=== PATIENT | female | born 1985 | race Caucasian/White ===

== ENCOUNTER → 2018-04-10 16:47 | Outpatient (REF) | payer BC, SELFPAY | LOC: LAB 16:47 | PROVIDERS: Visit Provider Nurse Practitioner Obstetrics & Gynecology | DX: N75.0 Cyst of Bartholin's gland (principal); R10.2 Pelvic and perineal pain | CPT/HCPCS: 87070; 87077; 87186; 87205 ==

== ENCOUNTER → 2018-08-27 13:29 | Outpatient (CLI) | payer BC, SELFPAY ==
[2018-08-28 08:37] LABS: HIV Screen 4th Generation wRfx Non Reactive (Non Reactive); Hepatitis C Antibody <0.1 s/co ratio (0.0-0.9)
[2018-08-28 12:55] LABS: Rapid Plasma Reagin Ab Titer Non Reactive (NonRea<1:1)
== END ==
PROVIDERS: PCP Nurse Practitioner Obstetrics & Gynecology; Visit Provider Obstetrics & Gynecology
DX: Z72.51 High risk heterosexual behavior (principal)
CPT/HCPCS: 36415; 86592; 86703; 87380; G0432

== ENCOUNTER → 2019-07-24 10:50 | Outpatient (CLI) | payer BC, SELFPAY ==
--- NOTE | 2019-07-24 10:52 | US_ITS ---
PROCEDURE: US TRANSVAGINAL CLINICAL INDICATION: US T/V- RLQP Pelvic pain COMPARISON: TVP US TRANSVAGINAL PREG from 10/13/2015 TECHNIQUE: FINDINGS: The uterus is bulky at 10 x 5 x 5 cm with a combined endometrial thickness of 6 mm. No obvious uterine mass. There is an IUD present which appears to be in satisfactory position within the endometrial canal of the body of the uterus. The left ovary is 3 x 2.3 cm with some small follicles measuring up to 1 cm. The right ovary is 5 x 2.4 cm containing at least 2 cysts each measuring approximately 2 cm. No cul-de-sac fluid is evident. IMPRESSION: Slightly bulky uterus with IUD in place Mildly prominent right ovary containing 2 cyst at 2 cm each Dictated by: Antonio Sevilla MD 07/24/2019 17:51 Signed by: <Electronically signed by Antonio Sevilla MD in [place]> 07/24/2019 17:51
== END ==
PROVIDERS: Visit Provider Nurse Practitioner Obstetrics & Gynecology
DX: R10.31 Right lower quadrant pain (principal)
CPT/HCPCS: 76830

== ENCOUNTER → 2019-07-28 16:59 | Outpatient (CLI) | payer BC, SELFPAY ==
[2019-07-31 14:20] LABS: Neisseria gonorrhoeae, NAA Negative (Negative)
== END ==
PROVIDERS: Visit Provider Nurse Practitioner Obstetrics & Gynecology
DX: R10.2 Pelvic and perineal pain (principal); Z72.51 High risk heterosexual behavior
CPT/HCPCS: 87491; 87591

== ENCOUNTER 2020-08-24 12:29 | Emergency (ER) | payer BC, SELFPAY ==
[2020-08-24 12:30] VITALS: BP 188/99; PULSE 87; RESP 16; TEMP 37.2; O2SAT 98; BMI 39.1
--- NOTE | 2020-08-24 13:39 | HMH.EDUTC ---
[facility] [place] [facility] [place] Clinical Impression: Allergic rhinitis Qualifiers: Allergic rhinitis trigger: unspecified Allergic rhinitis seasonality: unspecified Qualified Code(s): J30.9 - Allergic rhinitis, unspecified Disposition: Home, Self-Care Condition on Discharge: Good Instructions: Sore Throat, DI for Nasal Congestion Additional Instructions: *Monitor Temp, Over the counter Motrin or Tylenol as directed/as needed Tylenol every 4 hours and Motrin every 6 hours (as long as your family doctor has told you that you can take it) for fever or pain. and straight to ER if unable to lower temp less than 101.0 after medication given *Warm salt water gargles may help to soothe the throat *Throat Lozenges *Warm fluids like tea with honey may help to soothe the throat *Sleep elevated *Humidifier/Vaporizer *Flonase 2 sprays in each nostril daily but be aware that it may take 2-3 days before you notice improvement Your throat swab was sent for culture. Those results are typically sent to your primary care. Be sure to follow up in 2-3 days with your family doctor/primary care physician if no improvement so they can review those result and treat if necessary. If you don?t have a primary care doctor, I recommend you get one but in the mean time, you will have to return to a walk in clinic Follow up IMMEDIATELY for new or worsening symptoms or no Noticeable improvement over the next 48-72 hours. 911 for difficulty breathing or swallowing You was tested for today for COVID19 your test result should be back within the next 48-72 hours, call back to the [facility] to see if your test results are back and the result You was given a handout with instructions for Self Quarantine and Self isolation for while you wait on test results and what to do if they are positive Prescriptions: Fluticasone Propionate [Flonase 50mcg nasal spray 16gm] 1 spr NS DAILY #1 bottle Transmission Status: Pending to [facility] methylPREDNISolone [Medrol 4mg tab] 4 mg PO DIRECTED #21 tab Transmission Status: Pending to [facility] Referrals: Praneeth Conti [Primary Care Provider] - As needed Time of Disposition: 13:55 Medical Decision Making - Dung Inquiry Pt receiving controlled substance: No Dung was queried for this patient: No Vital Signs: 08/24/20 12:30 Temperature 98.9 F Temperature Source Oral Pulse Rate [Right] 87 Respiratory Rate 16 Blood Pressure [Right Arm] 188/99 H Blood Pressure Mean [Right Arm] 128 Blood Pressure Source [Right Arm] Automatic Cuff Blood Pressure Position [Right Arm] Sitting 02 Sat by Pulse Oximetry 98 Oxygen Delivery Method Room Air - Lab Data Lab results reviewed: Yes: I reviewed the patient's lab results. Lab Results 08/24/20 13:24: Strep Scn Rapid Clinic Negative Orders (Tests/Meds): ORDERS Category Date Time Status Covid-19 Nasal PCR Sendout [facility] Stat [facility] 08/24/20 13:24 Ordered Strep Screen Confirmation Stat Micro 08/24/20 13:24 Re[place] [facility] [place] - General Stated complaint: Marinelli,nausa, sore throat, Time Seen by Provider: 08/24/20 13:39 Mode of Arrival: Ambulatory Source of Information: Patient Limitations: No Limitations Description of Symptoms (Recalled from Triage Doc. by RN): Pt c/o headache, nausea, sore thorat for the past couple of days HEENT Symptoms (Recalled from RN notes): Yes (see triage note) Resp Symptoms (Recalled from RN notes): No Skin Symptoms (Recalled from RN notes): No MS Symptoms (Recalled from RN notes): No Functional Status (Recalled from RN notes): na - History of Present Illness Provider Complaint: Patient states that she hasnt been feeling well having sore throat, nasal congestion and cough along with some nausea earlier today States that she has a small child on Chemo and wanted to get checked for COVID States that today she was still feeling bad so she come in to get checked - Related Data Home Medications Medication Instructions Recorded Co
[2020-08-24 13:43] LABS: UTC Strep Screen (Rapid) Negative (Negative)
[2020-08-24 13:51] VITALS: BP 143/92; PULSE 78; RESP 18; TEMP 37.2; O2SAT 99
[2020-08-25 12:38] LABS: Covid-19 Nasal PCR Sendout Lex NOT DETECTED
== END 2020-08-24 13:59 | disposition home or self-care (01) ==
PROVIDERS: Emergency Provider Nurse Practitioner; PCP Pediatrics
DX: J30.9 Allergic rhinitis, unspecified (principal); F41.9 Anxiety disorder, unspecified; F17.210 Nicotine dependence, cigarettes, uncomplicated; Z20.828 Contact with and (suspected) exposure to other viral communicable diseases
CPT/HCPCS: 87880; 99202; U0004

== ENCOUNTER → 2021-05-18 18:03 | Outpatient (CLI) | payer BC, SELFPAY ==
[2021-05-18 18:28] LABS: Basophils % 0.2 % (0.1-2.0); Eosinophils # 0.1 K/mm3 (0.0-0.4); Eosinophils % 1.6 % (0.1-12.0); Hematocrit 36.9 % (37.0-47.0); Hemoglobin 12.6 g/dL (12.2-16.2); Lymphocytes # 1.2 K/mm3 (0.7-4.5); Lymphocytes % 26.3 % (10-50); Mean Corpuscular HGB Conc 34.1 g/dL (31.8-35.4); Mean Corpuscular Hemoglobin 25.8 pg (27.0-31.2); Mean Corpuscular Volume 75.6 fl (81-99); Mean Platelet Volume 8.7 fl (7.4-10.4); Monocytes # 0.3 K/mm3 (0.1-1.0); Monocytes % 5.7 % (1.7-9.3); Neutrophils # 2.9 K/mm3 (1.8-7.8); Neutrophils % 66.3 % (37.0-80.0); Platelet Count 217 K/mm3 (142-424); Red Blood Count 4.88 M/mm3 (4.20-5.40); Red Cell Distribution Width 16.1 % (11.5-17.5); White Blood Count 4.4 K/mm3 (4.8-10.8)
[2021-05-18 18:58] LABS: Alanine Aminotransferase 30 U/L (12-78); Albumin Level 4.5 g/dl (3.5-5.0); Albumin/Globulin Ratio 1.6 (1.1-1.8); Alkaline Phosphatase 60 U/L (38-126); Aspartate Amino Transferase 35 U/L (14-36); Bilirubin,Total 0.8 mg/dl (0.2-1.3); Blood Urea Nitrogen 12 mg/dl (7-17); Calcium 9.3 mg/dl (8.4-10.2); Carbon Dioxide 27 mmol/L (22.0-30.0); Chloride 105 mmol/L (98-107); Chol/HDL Ratio 3.9 (1-3.5); Cholesterol 169 mg/dl (140-200); Estimated Glomerular Filt Rate 114 ml/min (>60); GFR (African American) 138 ML/MIN (>60); Globulin 2.9 g/dL (1.3-3.2); Glucose 95 mg/dl (74-100); HDL Cholesterol 43 mg/dl (40-60); Sodium 139 mmol/L (136-145); Total Protein,Serum 7.4 g/dl (6.3-8.2); Triglycerides 177 mg/dl (30-150); VLDL Cholesterol 35 mg/dL (0-40)
[2021-05-18 19:09] LABS: Direct LDL Cholesterol 98.91 mg/dL (100-129)
[2021-05-18 19:16] LABS: Free T4 (Free Thyroxine) 0.93 ng/dl (0.78-2.19)
[2021-05-18 19:17] LABS: 25-OH Vitamin D, Total 18.4 ng/mL (30-100)
[2021-05-18 19:29] LABS: Thyroid Stimulating Hormone 3.99 uIU/mL (0.465-4.68)
== END ==
PROVIDERS: Visit Provider Physician Assistant
DX: I10 Essential (primary) hypertension (principal); E55.9 Vitamin D deficiency, unspecified; E66.01 Morbid (severe) obesity due to excess calories; Z68.41 Body mass index [BMI] 40.0-44.9, adult
CPT/HCPCS: 80053; 80061; 82306; 84439; 84443; 85025

== ENCOUNTER → 2021-05-24 17:28 | Outpatient (CLI) | payer BC, SELFPAY | PROVIDERS: Visit Provider Nurse Practitioner Obstetrics & Gynecology | DX: N75.1 Abscess of Bartholin's gland (principal) | CPT/HCPCS: 87070; 87077; 87186; 87205 ==

== ENCOUNTER → 2021-05-30 07:45 | Outpatient (CLI) | payer BC, SELFPAY ==
--- NOTE | 2021-05-30 07:45 | CA_ITS ---
APPROVED REPORT Workforce Services Representative: Lakia Gautam RVT Study Quality: Good Indications: HTN Risk Factors Hypertension Smoking Renal Artery Doppler Origin (R) 178.0/ cm/sec Proximal (R) 150.2/ cm/sec Mid (R) 123.0/ cm/sec Distal (R) 174.6/ cm/sec Renal Aorta Ratio (R) 1.09 Segmental A. (R) 64.4/14.5 cm/sec RI: 0.77 Segmental A. Sup (R) 64.4/14.5 cm/sec Segmental A. Mid (R) 43.4/15.8 cm/sec Segmental A. Inf (R) 59.1/21.0 cm/sec Origin (L) 143.0/ cm/sec Proximal (L) 128.6/ cm/sec Mid (L) 172.1/ cm/sec Distal (L) 86.7/ cm/sec Renal Aorta Ratio (L) 1.05 Segmental A. (L) 47.2/19.1 cm/sec RI: 0.59 Segmental A. Sup (L) 38.5/9.4 cm/sec Segmental A. Mid (L) 47.2/19.1 cm/sec Segmental A. Inf (L) 43.8/21.4 cm/sec Renal Measurements Kidney Size (R) 12.1x7.0 cm Cortical Thickness (R) 1.7 cm Kidney Size (L) 11.2x6.5 cm Cortical Thickness (L) 1.4 cm Findings Study suggests no evidence of stenosis of the bilateral renal arteries. Conclusion Study suggests no evidence of stenosis of the bilateral renal arteries. Electronically signed by : Antonio Sevilla MD 05/30/2021 17:01:06
== END ==
PROVIDERS: PCP Physician Assistant; Visit Provider Physician Assistant
DX: I10 Essential (primary) hypertension (principal)
CPT/HCPCS: 93976

== ENCOUNTER → 2021-06-30 19:25 | Outpatient (CLI) | payer BC, SELFPAY | PROVIDERS: Visit Provider Nurse Practitioner Family | DX: Z11.52 Encounter for screening for COVID-19 (principal) | CPT/HCPCS: U0003 ==

== ENCOUNTER → 2021-08-01 22:03 | Outpatient (CLI) | payer BC, SELFPAY | PROVIDERS: Visit Provider Nurse Practitioner Family | DX: Z20.822 Contact with and (suspected) exposure to COVID-19 (principal); R05 Cough | CPT/HCPCS: U0003 ==

== ENCOUNTER → 2021-09-20 12:36 | Outpatient (CLI) | payer BC, SELFPAY ==
--- NOTE | 2021-09-20 12:44 | XR_ITS ---
PROCEDURE: XR CHEST 2V CLINICAL HISTORY: s/p covid, soa COMPARISON: No exams were available for comparison FINDINGS: The cardiomediastinal silhouette and pulmonary vascularity are within normal limits. The lungs are clear without infiltrates, suspicious nodules, or pleural effusions. No acute bony abnormalities. IMPRESSION: No acute findings. Dictated by: Antonio Sevilla MD 09/20/2021 17:14 Antonio Sevilla MD in [place] 09/20/2021 17:14
== END ==
PROVIDERS: PCP Physician Assistant; Visit Provider Physician Assistant
DX: R06.02 Shortness of breath (principal)
CPT/HCPCS: 71046

== ENCOUNTER → 2021-10-11 08:14 | Outpatient (CLI) | payer BC, SELFPAY ==
--- NOTE | 2021-10-11 08:20 | CT_ITS ---
PROCEDURE: CT ANGIO CHEST PE PROTOCOL CLINCIAL INDICATION: dyspnea post covid COMPARISON: CR XR CHEST 2V from 09/20/2021 TECHNIQUE: IV Contrast: 70ML Isovue 370 Axial images obtained with sagittal and coronal reformats. All CT scans at the facility use one or more dose reduction, viz: automated exposure control, ma/kV adjustment per patient size (including targeted exams where dose is matched to indication, i.e. head), or iterative reconstruction technique. FINDINGS: HEART AND MEDIASTINAL STRUCTURES: Thyroid gland is somewhat enlarged bilaterally. Subtle low-dense changes are present in the left lobe of the thyroid gland suggesting a nodule measuring 2.5 x 1.3 cm. Thyroid ultrasound may provide further evaluation. No evidence of pulmonary embolus. LUNGS AND PLEURAL SPACES: The lungs are clear of infiltrate. There are few scattered calcified granulomas. No ground-glass infiltrates. No effusions or fibrotic change. BONY STRUCTURES: Mild degenerative changes thoracic spine. UPPER ABDOMEN: Diffuse fatty liver infiltration. There is splenomegaly at 16 cm. ADDITIONAL FINDINGS: No other significant abnormalities. IMPRESSION: 1. No acute pulmonary findings. No evidence of pulmonary embolus. The lungs are clear. 2. 2.5 x 1.3 cm left-sided thyroid nodule with mild bilateral thyromegaly. Thyroid ultrasound may provide further evaluation. 3. Splenomegaly Dictated by: Antonio Sevilla MD 10/12/2021 08:24 Antonio Sevilla MD in [place] 10/12/2021 08:24
== END ==
PROVIDERS: PCP Physician Assistant; Visit Provider Physician Assistant
DX: R06.09 Other forms of dyspnea (principal); U09.9 Post COVID-19 condition, unspecified
CPT/HCPCS: 71275; Q9967

== ENCOUNTER → 2022-02-01 16:43 | Outpatient (CLI) | payer BC, SELFPAY | PROVIDERS: Visit Provider Nurse Practitioner Obstetrics & Gynecology | DX: N75.1 Abscess of Bartholin's gland (principal); B96.20 Unspecified Escherichia coli [E. coli] as the cause of diseases classified elsewhere | CPT/HCPCS: 87070; 87077; 87186; 87205 ==

== ENCOUNTER 2022-06-30 16:19 | Emergency (ER) | payer BC, SELFPAY ==
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
[2022-06-30 17:16] VITALS: BP 170/109; PULSE 80; RESP 17; TEMP 36.9; O2SAT 97; BMI 39.4
[2022-06-30 17:31] VITALS: BP 170/109; PULSE 80; RESP 17; TEMP 36.9
== END 2022-06-30 17:32 | disposition home or self-care (01) ==
PROVIDERS: Emergency Provider Nurse Practitioner Family; PCP Physician Assistant
DX: Z20.822 Contact with and (suspected) exposure to COVID-19 (principal); B34.9 Viral infection, unspecified
CPT/HCPCS: 99212; C9803; G0463; U0003; U0005

== ENCOUNTER → 2022-09-28 17:32 | Outpatient (CLI) | payer BC, SELFPAY | PROVIDERS: PCP Nurse Practitioner Obstetrics & Gynecology; Visit Provider Nurse Practitioner Obstetrics & Gynecology | DX: N75.0 Cyst of Bartholin's gland (principal) | CPT/HCPCS: 86403 ==

== ENCOUNTER 2022-11-13 15:53 | Emergency (ER) | payer BC, SELFPAY ==
[2022-11-13 16:36] VITALS: BP 180/120; PULSE 84; RESP 16; TEMP 36.9; O2SAT 98; BMI 36.6
[2022-11-13 16:46] LABS: UTC Strep Screen (Rapid) Negative (Negative)
--- NOTE | 2022-11-13 17:21 | EXP.UTC ---
Discharge Plan Disposition Patient Disposition: Home, Self-Care Condition: Good Prescriptions Prescriptions: No Action Mirena 20 mcg/24 hours (7 yrs) 52 mg intrauterine device INTRAUTERI albuterol sulfate [Ventolin HFA] 90 mcg/actuation HFA aerosol inhaler 2 puff INHALATION Q4-6H PRN (Reason: shortness of breath or wheezing) 30 Days Qty: 6.7 5RF Rx Instructions: administer with spacer cholecalciferol (vitamin D3) 25 mcg (1,000 unit) capsule 25 mcg PO DAILY Qty: 30 2RF lisinopril 20 mg tablet See Rx Instructions .ROUTE .COMPLEX Qty: 30 3RF Dose Instruction: Take 1 tablet by mouth once daily Rx Instructions: Take 1 tablet by mouth once daily ibuprofen 800 MG tablet 800 mg PO Q8HP PRN (Reason: Moderate Pain) Qty: 30 0RF benzonatate 100 MG capsule 100 mg PO TIDP PRN (Reason: Cough) Qty: 30 0RF ondansetron 4 MG tablet,disintegrating 4 mg PO Q8HP PRN (Reason: Nausea) Qty: 12 0RF Referrals Follow up/Referrals: Ira Hardy PA [Primary Care Provider] - See instructions Activity Restrictions/Add. Instructions Additional Instructions/Restrictions: flu swab was sent to lab, call tomorrow for results. self isolate until test results are known to be negative No sign of a bacterial infection. Likely viral. Viruses can take 7-14 days to run their course. Nasal saline and bulb syringe or nose Myah to remove nasal drainage to help with nasal congestion. Hard to eat, drink, sleep with nasal congestion so important to keep this cleaned out. Monitor temp. Tylenol or Motrin as needed for pain or fever Encourage fluids, water, Gatorade, Powerade, Pedialyte if /toddler/child Warm salt water gargles Warm fluids Sore throat lozenges Sleep elevated Humidifier/vaporizer Follow-up immediately for new or worsening symptoms or no noticeable improvement over the next 48-72 hours. Clinical Impressions Clinical Impression: Upper respiratory infection, viral Instructions Patient Instructions: DI for Viral Upper Respiratory Infection -- Adult Discharge ED Provider: Yosef ([facility] [place] H[place] General Stated complaint: cough, sore throat, body aches Mode of Arrival: Ambulatory Source of Information: Patient Limitations: No Limitations Time Seen by Provider: 11/13/22 17:21 Description of Symptoms (Recalled from Triage Doc. by RN): pt comes in with c/o sore throat, headache, back ache, fatigue. symptoms began last night HEENT Symptoms (Recalled from RN notes): Yes Resp Symptoms (Recalled from RN notes): Yes Skin Symptoms (Recalled from RN notes): No MS Symptoms (Recalled from RN notes): No Functional Status (Recalled from RN notes): n/a History of Present Illness Provider Complaint: 37 yr old female c/o sore throat, headache, back ache, fatigue. symptoms began last night Related Data Home Medications Medication Instructions Recorded Confirmed levonorgestrel 20 mcg/24 hours (8 intrauterine 02/01/22 09/28/22 yrs) 52 mg intrauterine device (Mirena) Previous Rx's Medication Instructions Recorded cholecalciferol (vitamin D3) 25 25 mcg PO DAILY #30 caps 05/23/21 mcg (1,000 unit) capsule albuterol sulfate 90 mcg/actuation 2 puff inhalation Q4-6H PRN 09/14/21 aerosol inhaler (Ventolin HFA) shortness of breath or wheezing 30 days #6.7 grams lisinopril 20 mg tablet See Rx Instructions .Route 05/28/22 .COMPLEX #30 tabs benzonatate 100 mg capsule 100 mg PO TIDP PRN Cough #30 caps 06/30/22 ibuprofen 800 mg tablet 800 mg PO Q8HP PRN Moderate Pain 06/30/22 #30 tabs ondansetron 4 mg disintegrating 4 mg PO Q8HP PRN Nausea #12 tabs 06/30/22 tablet Allergies Allergy/AdvReac Type Severity Reaction Status Date / Time cefaclor [From [facility]] Allergy Intermediate I-RASH Verified 11/13/22 16:38 Worker's Comp Is this a Worker's Comp case?: No [facility] PFS Disclaimer: The information contained in this section may have been updated after the patient
[2022-11-13 17:35] VITALS: BP 180/120; PULSE 84; RESP 16; TEMP 36.9
== END 2022-11-13 17:41 | disposition home or self-care (01) ==
PROVIDERS: Emergency Provider Nurse Practitioner Family; PCP Physician Assistant
DX: J06.9 Acute upper respiratory infection, unspecified (principal)
CPT/HCPCS: 87275; 87276; 87880; 99212; G0463

== ENCOUNTER 2023-06-13 18:27 | Emergency (ER) | payer BC, SELFPAY ==
[2023-06-13 18:50] VITALS: BP 129/86; PULSE 85; RESP 18; TEMP 37.1; O2SAT 98; BMI 43.9
[2023-06-13 19:09] LABS: UTC Strep Screen (Rapid) Negative (Negative)
--- NOTE | 2023-06-13 19:19 | EXP.UTC ---
Discharge Plan Disposition Patient Disposition: Home, Self-Care Condition: Good Prescriptions Prescriptions: New azithromycin [Zithromax Z-Ulises] 250 mg tablet See Rx Instructions .ROUTE .COMPLEX 5 Days Qty: 6 0RF Rx Instructions: For 250 mg dose pack: take 500 mg today (day 1), then 250 mg for 4 days (days 2-5) methylprednisolone [Medrol (Ulises)] 4 mg tablets,dose pack See Rx Instructions .Route .COMPLEX 6 Days Qty: 21 0RF Rx Instructions: taper pack; No Action Mirena 20 mcg/24 hours (7 yrs) 52 mg intrauterine device INTRAUTERI albuterol sulfate [Ventolin HFA] 90 mcg/actuation HFA aerosol inhaler 2 puff INHALATION Q4-6H PRN (Reason: shortness of breath or wheezing) 30 Days Qty: 6.7 5RF Rx Instructions: administer with spacer cholecalciferol (vitamin D3) 25 mcg (1,000 unit) capsule 25 mcg PO DAILY Qty: 30 2RF lisinopril 20 mg tablet See Rx Instructions .ROUTE .COMPLEX Qty: 30 3RF Dose Instruction: Take 1 tablet by mouth once daily Rx Instructions: Take 1 tablet by mouth once daily lorazepam [Ativan] 0.5 mg tablet 0.5 mg PO TID PRN (Reason: anxiety) Qty: 30 0RF ibuprofen 800 MG tablet 800 mg PO Q8HP PRN (Reason: Moderate Pain) Qty: 30 0RF benzonatate 100 MG capsule 100 mg PO TIDP PRN (Reason: Cough) Qty: 30 0RF ondansetron 4 MG tablet,disintegrating 4 mg PO Q8HP PRN (Reason: Nausea) Qty: 12 0RF Referrals Follow up/Referrals: Ira Hardy PA [Primary Care Provider] - See instructions Activity Restrictions/Add. Instructions Additional Instructions/Restrictions: *Monitor Temp, Over the counter Motrin or Tylenol as directed/as needed Tylenol every 4 hours and Motrin every 6 hours (as long as your family doctor has told you that you can take it) for fever or pain. and straight to ER if unable to lower temp less than 101.0 after medication given *Warm salt water gargles may help to soothe the throat *Throat Lozenges? *Warm fluids like tea with honey may help to soothe the throat? *Sleep elevated *Humidifier/Vaporizer Take medication as prescribed Your throat swab was sent for culture. Those results are typically sent to your primary care. Be sure to follow up in 2-3 days with your family doctor/primary care physician if no improvement so they can review those result and treat if necessary. If you don?t have a primary care doctor, I recommend you get one but in the mean time, you will have to return to a walk in clinic Follow up IMMEDIATELY for new or worsening symptoms or no Noticeable improvement over the next 48-72 hours. 911 for difficulty breathing or swallowing Clinical Impressions Clinical Impression: Pharyngitis Qualifiers: Pharyngitis/tonsillitis etiology: unspecified etiology Qualified Code(s): J02.9 - Acute pharyngitis, unspecified Instructions Patient Instructions: Sore Throat Discharge ED Provider: Jessica Forman [facility] General Stated complaint: sore throat Mode of Arrival: Ambulatory Source of Information: Patient Limitations: No Limitations Time Seen by Provider: 06/13/23 19:19 Description of Symptoms (Recalled from Triage Doc. by RN): PATIENT C/O SORE THROAT AND LOW-GRADE FEVER SINCE YESTERDAY HEENT Symptoms (Recalled from RN notes): Yes Resp Symptoms (Recalled from RN notes): No Skin Symptoms (Recalled from RN notes): No MS Symptoms (Recalled from RN notes): No Functional Status (Recalled from RN notes): WNL History of Present Illness Provider Complaint: Patient states that she has been having sore throat and low grade fever since yesterday States that it hurts in her throat when she swallows and the sides of her throat States that it has continued to get worse so today she came in to get checked worried that she may have strep throat Related Data Home Medications Medication Instructions Recorded Confirmed levonorgestrel 21 mcg/24 hours (8 intra
[2023-06-13 19:28] VITALS: BP 129/86; PULSE 85; RESP 18; TEMP 37.1; O2SAT 98
== END 2023-06-13 19:30 | disposition home or self-care (01) ==
PROVIDERS: Emergency Provider Nurse Practitioner; PCP Physician Assistant
DX: J02.9 Acute pharyngitis, unspecified (principal); R50.9 Fever, unspecified; I10 Essential (primary) hypertension; E66.01 Morbid (severe) obesity due to excess calories; Z87.891 Personal history of nicotine dependence
CPT/HCPCS: 87880; 99212; 99214; G0463

== ENCOUNTER → 2023-07-09 12:02 | Outpatient (CLI) | payer BC, SELFPAY ==
[2023-07-09 12:47] LABS: Basophils % 0.2 % (0.1-2.0); Eosinophils % 0.8 % (0.1-12.0); Hematocrit 42.4 % (37.0-47.0); Hemoglobin 14.1 g/dL (12.2-16.2); Lymphocytes # 0.9 K/mm3 (0.7-4.5); Lymphocytes % 16.2 % (10-50); Mean Corpuscular HGB Conc 33.3 g/dL (31.8-35.4); Mean Corpuscular Hemoglobin 25.7 pg (27.0-31.2); Mean Corpuscular Volume 77.1 fl (81-99); Mean Platelet Volume 8.1 fl (7.4-10.4); Monocytes # 0.2 K/mm3 (0.1-1.0); Monocytes % 3.9 % (1.7-9.3); Neutrophils # 4.4 K/mm3 (1.8-7.8); Platelet Count 219 K/mm3 (142-424); Red Blood Count 5.51 M/mm3 (4.20-5.40); Red Cell Distribution Width 15.8 % (11.5-17.5); White Blood Count 5.6 K/mm3 (4.8-10.8)
[2023-07-09 13:13] LABS: Alanine Aminotransferase 29 U/L (12-78); Albumin Level 4.4 g/dl (3.5-5.0); Albumin/Globulin Ratio 1.3 (1.1-1.8); Alkaline Phosphatase 52 U/L (38-126); Anion Gap 13.2 mEq/L (5-15); Aspartate Amino Transferase 27 U/L (14-36); Bilirubin,Total 0.9 mg/dl (0.2-1.3); Blood Urea Nitrogen 13 mg/dl (7-17); Carbon Dioxide 27 mmol/L (22.0-30.0); Chloride 106 mmol/L (98-107); Estimated Glomerular Filt Rate 95 ml/min (>60); GFR (African American) 115 ML/MIN (>60); Globulin 3.3 g/dL (1.3-3.2); Glucose 120 mg/dl (74-100); Potassium 4.2 mmoL/L (3.5-5.1); Sodium 142 mmol/L (136-145); Total Protein,Serum 7.7 g/dl (6.3-8.2)
[2023-07-09 13:38] LABS: HCG,Quantitative < 2 mIU/ml (0-5.42)
== END ==
PROVIDERS: PCP Physician Assistant; Visit Provider Nurse Practitioner Obstetrics & Gynecology
DX: Z01.812 Encounter for preprocedural laboratory examination (principal); N75.1 Abscess of Bartholin's gland
CPT/HCPCS: 36415; 80053; 84702; 85025

== ENCOUNTER 2023-07-10 10:51 | Day surgery (SDC) | payer BC, SELFPAY ==
[2023-07-09 12:43] VITALS: BMI 39.9
[2023-07-10] VITALS (11 sets, daily range): BP systolic 139–190; BP diastolic 75–102; PULSE 61–92; RESP 16–18; TEMP 36.1–36.7; O2SAT 95–99
--- NOTE | 2023-07-10 12:12 | P.PNANES_ITS ---
[facility] Disclaimer: The information contained in this section may have been updated after the patient was seen, as this information can be updated by other users. Medical History Hypertension Morbid obesity Surgical History History of delivery Family History Other Family history of hypertension Social History (Updated 07/10/23 @ 11:07 by Gail Lozada RN) Smoking Status: Current every day smoker tobacco type: e-cigarettes alcohol intake: never substance use type: denies use current occupational status: student Travel in the last 8 weeks: None [facility] Anesthesia Checklist Patient Identification Patient Identification: Arm Band Structural Data Admitted From: Home Planned Operative Procedure/s: I&D Bartholin Cyst Consent for Planned Operative Procedure(s) Verified: Yes Verified Documents: Surgical Consent and History and Physical NPO Status Verified Time NPO: 00:00 Additional verifications Anesthesia Reactions: No Hx Blood Transfusions: No Airway Assessment Mallampati Score:: Class II C-Spine Mobility Assessed: Yes TMJ Mobility Assessed: Yes Dentition: Good Dentition Neurological Assessment Level of Consciousness: Awake and Alert Anesthesia Plan Anesthesia Risk discussed: Yes Anesthesia Plan: Verified ASA Class: II Anesthesia Type: General
--- NOTE | 2023-07-10 12:56 | EXP.ANES.I ---
[facility] Anesthesia Record Part I Anesthesia Record I Intake, IV Amount: 700 Hydration: Adequate Estimated blood loss (mL): 25 Urine output (mL): 0 Blood Products used (#): none Blood Pressure: 155/99 SaO2: 96 Pulse Rate: 74 Airway Patency: Patent Respiratory Rate: 16 Temperature: 97.3 F Pain scale (0-10): 0 Nausea: No Vomiting: No Patient is:: Drowsy and Stable Stable to PACU at:: 12:55
--- NOTE | 2023-07-10 13:00 | EXP.OP.NOTE ---
Date of procedure: 07/10/23 Pre-op Diagnosis:: Bartholin's gland abscess Post-op Diagnosis:: Bartholin's gland abscess Procedure performed:: Marsupialization of Bartholin's gland. Surgeon:: Colten Kelly MD Convention Services Director(s):: Dr. 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 She had a Bartholin's gland abscess that I drained in September of last year. She subsequently had a recurrence of this abscess starting about 5 days ago. After having discussed the risk and benefits we elected to perform a Bartholin's gland marsupialization. Operative findings:: She had a 3 cm Bartholin's gland abscess that was filled with thick purulent liquid. Operative note:: She was taken the operating room where LMA anesthesia was found be adequate. She was prepped and draped in the normal sterile fashion in the lithotomy position. The abscess was grasped between my fingers and using a 15 blade I opened up the skin. I then opened up into the abscess cavity and thick purulent fluid drained from the abscess cavity. I then grasped both the inside of the abscess cavity and the skin and using interrupted 3-0 Vicryl Rapide suture I sewed open the abscess cavity all around the abscess. The abscess cavity was then irrigated with warm saline. I then inserted half-inch iodoform gauze to fill the cavity. I then injected 20 cc of 0.25% ropivacaine subcutaneously around the abscess. She tolerated procedure well and was taken the recovery room in next condition. All sponge, instrument and needle counts were correct. The estimated blood loss was less than 25 cc. Condition: stable Disposition: PACU Specimens:: Abscess cultures. Complications:: None
--- NOTE | 2023-07-10 13:23 | PC.NURSE ---
PATIENT RATES PAIN A 7 OUT OF 10 USING NUMERIC SCALE, PAIN ASSESSMENT WONT ALLOW ME TO EDIT IN CHARTING REASSESSMENT AT 1322-PT REPORTS VAGINAL PAIN AT A 3 WHICH IS TOLERABLE PER PT
--- NOTE | 2023-07-10 14:09 | P.PNANES_ITS ---
[facility] Anesthesia Record Part II Anesthesia Record Part II Discharge Time: 13:25 Destination: Surgical Day Care (OP Surgery) PACU nurse assessment reviewed?: Yes Patient Condition:: Good Anesthesia Complications:: None Swallowing reflex intact?: Yes Airway Patency: Patent Cyanosis?: No Blood Pressure: 157/100 SaO2: 95 Respiratory Rate: 17 Pulse Rate: 65 Temperature: 97 F Mental Status: Alert & Oriented Pain level:: 3 Nausea and/or vomitting:: None Intake, IV Amount: 0 Hydration: Adequate
== END 2023-07-10 14:20 | disposition home or self-care (01) ==
PROVIDERS: PCP Physician Assistant; Visit Provider Nurse Practitioner Obstetrics & Gynecology
PROC: (CPT 56440; principal; 2023-07-10 12:30)
DX: N75.8 Other diseases of Bartholin's gland (principal); B95.4 Other streptococcus as the cause of diseases classified elsewhere
CPT/HCPCS: 56440; 87070; 87075; 87077; 87186; 87205; J2405

== ENCOUNTER 2024-05-26 18:05 | Emergency (ER) | payer BC, SELFPAY ==
[2024-05-26 18:10] VITALS: BP 188/93; PULSE 99; RESP 18; TEMP 37.4; O2SAT 98; BMI 42.8
--- NOTE | 2024-05-26 18:17 | EXP.UTC ---
Discharge Plan Disposition Patient Disposition: Home, Self-Care Condition: Good Prescriptions Prescriptions: New azithromycin [Zithromax] 250 mg tablet 250 mg PO UD DOSE PK Qty: 6 0RF Rx Instructions: Take two (2) tablets today, then one (1) tablet days #2 thru #5 methylprednisolone 4 mg Tablets,Dose Pack 4 mg PO DIRECTED 6 Days Qty: 21 0RF Rx Instructions: Take 1 pack as directed for 6 days fwjvtjimtrmulhl-ymuigicgi-XL [Bromfed DM] 2-30-10 mg/5 mL Syrup 5 ml PO Q6H PRN (Reason: Cough) Qty: 240 0RF No Action Mirena 20 mcg/24 hours (7 yrs) 52 mg intrauterine device 1 mcg INTRAUTERI ONCE Referrals Follow up/Referrals: Ira Hardy PA [Primary Care Provider] - See instructions Activity Restrictions/Add. Instructions Additional Instructions/Restrictions: Drink plenty of fluids. Take tylenol or ibuprofen for pain or fever. Take the medications as directed. Follow up with your regular doctor. GO TO THE ER FOR ANY WORSENING SYMPTOMS Throw your tooth brush away and get a new one. Clinical Impressions Clinical Impression: Strep throat Instructions Patient Instructions: Strep Throat, DI for Strep Throat Discharge ED Provider: Ramakrishna Camacho [facility] General Stated complaint: sore throat Time Seen by Provider: 05/26/24 18:16 Related Data Home Medications Medication Instructions Recorded Confirmed levonorgestrel 21 mcg/24 hr (up to 1 mcg intrauterine ONCE 02/01/22 05/26/24 8 years) 52 mg intrauterine device Control (Mirena) Previous Rx's Medication Instructions Recorded azithromycin 250 mg tablet 250 mg PO UD DOSE PK #6 tabs 05/26/24 (Zithromax) idcesrugiwjfnhr-utkubaoozhlakgr-PW 5 ml PO Q6H PRN Cough #240 mL 05/26/24 2 mg-30 mg-10 mg/5 mL oral syrup (Bromfed DM) methylprednisolone 4 mg tablets in 4 mg PO DIRECTED 6 days #21 tabs 05/26/24 a dose pack Allergies Allergy/AdvReac Type Severity Reaction Status Date / Time cefaclor [From Replaced By [facility]] Allergy Intermediate I-RASH Verified 05/26/24 18:[address] [facility] Disclaimer: The information contained in this section may have been updated after the patient was seen, as this information can be updated by other users. Medical History (Updated 05/26/24 @ 18:45 by Ramakrishna Camacho APRN) Morbid obesity Hypertension Surgical History History of delivery Family History Other Family history of hypertension Social History Smoking Status: Current every day smoker tobacco type: e-cigarettes alcohol intake: never substance use type: denies use current occupational status: student Travel in the last 8 weeks: None ROS Obtained: Yes All systems reviewed & no additional complaints except as documented Constitutional Constitutional: Reports chills and Reports fever(s) Eyes Eyes: Denies eye discharge ENT Ears, Nose, Mouth, and Throat: Reports as per HPI Cardiovascular Cardiovascular: Denies chest pain Respiratory Respiratory: Denies chest congestion and Reports cough Gastrointestinal Gastrointestingal: Reports nausea; Denies abdominal pain, constipation, cramping, diarrhea or vomiting Musculoskeletal Musculoskeletal: Denies arthralgias Integumentary/Breasts Skin/Breast: Denies rash Neurologic Neurologic: Denies paresthesias Physical Exam General General appearance: alert and in no apparent distress Head Head exam: atraumatic, normocephalic and normal inspection Eye Eye exam: Present normal appearance, PERRL and EOMI ENT ENT exam: Present mucous membranes moist and normal external ear exam Expanded ENT Exam TM/Canal exam: Bilateral TM: erythema and bulging Nose exam: Absent sinus tenderness Mouth exam: Present normal external inspection; Absent drooling Teeth exam: Present normal inspection Throat exam: Present tonsillar erythema, tonsillomegaly and tonsillar exudate Neck Neck exam: Present normal inspection, full ROM and trachea midline; Absent tenderness, meningismus or lymphadenopathy Chest Chest inspection: Present normal inspection and symmetric chest wall rise; Absent tenderness Respiratory Respiratory exam: Present normal lung sounds bilaterally; Absent respiratory distress, wheezes, stridor or accessory muscle use Cardiovascular Cardiovascular exam: Present regular rate and normal rhythm; Absent systolic murmur or diastolic murmur Abdominal Exam Abdominal exam: Present soft and normal bowel sounds; Absent distention, tenderness, guarding, rebound or rigidity Extremities Exam Extremities exam: Present normal inspection and normal capillary refill; Absent calf tenderness Back Exam Back exam: Present normal inspection and full ROM; Absent tenderness, CVA tenderness (R) or CVA tenderness (L) Neurological Exam Neurological exam: Present alert, oriented X3 and CN II-XII intact Psychiatric Psychiatric exam: Present normal affect and normal mood Skin Skin exam: Present warm, dry, intact and normal color Medical Decision Making Medical Records Medical records reviewed: No I reviewed the patient's medical records. Dung Inquiry Pt receiving controlled substance: No Lab Data Lab results reviewed: Yes I reviewed the patient's lab results.
[2024-05-26 18:40] LABS: UTC Strep Screen (Rapid) Positive (Negative)
[2024-05-26 18:55] VITALS: BP 188/93; PULSE 99; RESP 18; TEMP 37.4; O2SAT 98
== END 2024-05-26 18:55 | disposition home or self-care (01) ==
PROVIDERS: Emergency Provider Nurse Practitioner Family; PCP Physician Assistant
DX: J02.0 Streptococcal pharyngitis (principal); R07.0 Pain in throat
CPT/HCPCS: 87880; 99212; 99214; G0463